=== PATIENT | male | born 1975 | race Caucasian/White ===

== ENCOUNTER → 2017-07-10 | Outpatient (CLI) | payer OTHER ==
[~2017-07-10] MED LIST: BUPROPION XL150 MG PO; CARISOPRODOL 3350 M1 PO; DESYREL100 MG PO; HYDROCODON-ACE1 EAC7 PO; HYDROXYZINE HCL50 MG PO; IMITREX 50 MG T50 M1 PO; LORAZEPAM 0.50.5 MG PO; NORVASC 2.5 MG2.5 M1 PO; PAROXETINE HCL40 MG PO; PAXIL30 MG PO; SIMVASTATIN40 MG PO; SINGULAIR 10 MG10 M1 PO; STAVZOR500 MG PO; TOPAMAX 25 MG T25 M1 PG; TOPAMAX PO; VERAPAMIL HCL80 MG PO; VIIBRYD40 MG PO; XANAX XR1 MG PO; ZYRTEC10 M2 PO
== END ==
LOC: RAD 15:36
DX: M54.12 Radiculopathy, cervical region (principal)

== ENCOUNTER → 2019-06-10 | Outpatient (CLI) | payer OTHER | LOC: RAD 12:48 | DX: M25.562 Pain in left knee (principal) ==